=== PATIENT | female | born 1980 | race Caucasian/White ===

== ENCOUNTER 2019-12-18 10:44 | Day surgery (SDC) | payer BC ==
[~2019-12-18] VITALS: Ht 167.6 cm; Wt 153.2 kg
[~2019-12-18 10:44] MED LIST: LEVSOD75 PO; MONT10T PO
== END 2019-12-18 14:00 | disposition home or self-care (01) ==
LOC: ORSCSDS 10:44
PROVIDERS: Orthopaedic Surgery
PROC: 0QB Lower Bones, Excision (ICD-10-PCS; principal; 2019-12-18 11:45)
DX: M89.9 Disorder of bone, unspecified (principal); S80.01XA Contusion of right knee, initial encounter; S76.111A Strain of right quadriceps muscle, fascia and tendon, initial encounter; E03.9 Hypothyroidism, unspecified; Z79.899 Other long term (current) drug therapy
CPT/HCPCS: J0171; J1100; J1885; J2250; J2405; J2704; J3010; J7120

== ENCOUNTER → 2024-03-19 | Outpatient (CLI) | payer OTHER ==
[2024-03-19 13:20] LABS: Source, Urine Fem Cath
[2024-03-19 14:27] LABS: Appearance, Urine Clear (Clear); Bilirubin, Urine Neg (Neg); Blood, Urine Neg (Neg); Glucose Qualitative, Urine Neg (Neg); Ketones, Urine Neg (Neg); Leukocyte Esterase, Urine Neg (Neg); Nitrite, Urine Neg (Neg); Protein, Urine Neg (Neg); Specific Gravity, Urine 1.005 (1.003-1.022); Urobilinogen, Urine NORM (Normal)
[2024-03-19 14:54] LABS: Color, Urine No Color (P-Yellow)
== END ==
LOC: LAB 10:30 → LAB SHORT 10:30
PROVIDERS: Obstetrics & Gynecology
DX: N81.10 Cystocele, unspecified (principal)
CPT/HCPCS: 81003

== ENCOUNTER 2024-03-26 12:07 | Day surgery (SDC) | payer OTHER ==
[2024-03-26] VITALS (10 sets, daily range): BP systolic 99–123; BP diastolic 70–91
[~2024-03-26] VITALS: Ht 157.5 cm; Wt 63.8 kg
[~2024-03-26 12:07] MED LIST changes: +CeFAZolin Sodium 2,000 MG in NS 100 ML IV SCH; +Lactated Ringer's 1,000 ML IV SCH
[2024-03-26] MEDS ORDERED: CeFAZolin Sodium 2,000 MG VIAL ONE (12:15)
--- NOTE | 2024-03-26 12:52 | NUR ---
Ambulatory in Day Surgery. History, Chart, Medications and Allergies reviewed before start of procedure.Patient confirms NPO status and agrees with scheduled surgery. Lungs clear T/O to Auscultation. Patient States Post-Procedure ride home has been arranged.
[2024-03-26] MEDS ORDERED: Scopolamine Hydrobromide Patch TD SCH (13:15)
[2024-03-26] MEDS ORDERED: Bupivacaine 0.5% HCl 5 MG/ML 30MLVIAL ONE (13:18)
[2024-03-26] MEDS ORDERED: Dexamethasone Sod Phos 10 MG/ML 1ML VIAL ONE (13:29)
[2024-03-26] MEDS ORDERED: Ondansetron HCl 2 MG / ML 2ML Vial ONE (13:29)
[2024-03-26] MEDS ORDERED: Ketorolac Tromethamine 30mg Vial ONE (13:29)
[2024-03-26] MEDS ORDERED: OxyCODONE HCL 10 MG TABCR PO ONE (13:30)
[2024-03-26] MEDS ORDERED: propofoL 60 ML IV ONE (13:30)
[2024-03-26] MEDS ORDERED: Midazolam HCl 1MG / ML 2ML Vial ONE (13:35)
[2024-03-26] MEDS ORDERED: Lidocaine HCl 2% 20 ML MDV ONE (13:45)
[2024-03-26] MEDS ORDERED: Ketamine HCl 100 MG / ML 5ML Vial ONE (13:46)
[2024-03-26] MEDS ORDERED: Promethazine HCl 25 MG Supp PR ONE (13:55)
[2024-03-26] MEDS ORDERED: Lidocaine 1%-Epineph 1:200000 30 ML SDV ONE (14:00)
[2024-03-26] MEDS ORDERED: Acetaminophen 650 MG Supp ONE ×2 (14:41→14:42)
[2024-03-26] MEDS ORDERED: DiphenhydrAMINE HCL 25 MG Cap PO PRN (14:55)
[2024-03-26] MEDS ORDERED: Naloxone HCl 0.4MG / ML 1ML Vial IV PRN (15:00)
[2024-03-26] MEDS ORDERED: OxyCODONE HCL 5 MG TAB PO PRN (15:00)
[2024-03-26] MEDS ORDERED: Ondansetron 4 MG TAB PO PRN (15:00)
[2024-03-26] MEDS ORDERED: Simethicone 80 MG Chew PO PRN (15:00)
[2024-03-26] MEDS ORDERED: Ondansetron HCl 2 MG / ML 2ML Vial IV PRN (15:00)
[2024-03-26] MEDS ORDERED: Lactated Ringer's 1,000 ML IV SCH (15:00)
--- NOTE | 2024-03-26 15:10 | NUR ---
1500 PT HAS H/O INTERTRACTABLE VOMITING. HAS ON SCOPE PATCH. IV ZOFRAN GIVEN IN OR WELL NV PROMETHAZINE. NO MORE MED OPTIONS PER DR. JOHNSON
[2024-03-26] MEDS ORDERED: Ketorolac Tromethamine 30mg Vial IV PRN (15:19)
[2024-03-26] MEDS ORDERED: HYDROmorphone HCl/Pf 1MG SYR IV PRN (15:20)
[2024-03-26] MEDS ORDERED: FLU VACC TS2024-25(6MOS UP)/PF 45 MCG/0.5 ML SYRINGE IM PRN (15:20)
[2024-03-26] MEDS ORDERED: LORazepam 2 MG/ML 1ML Injection IV PRN (17:00)
[2024-03-26] MEDS ORDERED: OxyCODONE 5 mg/Acetamin 325 mg TABLET PO PRN (17:00)
--- NOTE | 2024-03-26 18:05 | NUR ---
SHIFT SUMMARY POD0 A&P REPAIR PANG INPLACE DRAINING TO GRAVITY, TO BE DCD WHEN AMBULATING. VSS, PATIENT IS NAUSEATED AND MEDICATED PER EMAR. ABLE TO TOLERATE SMALL SIPS OF WATER AT THIS TIME. CALL LIGHT IN REACH.
[2024-03-26] MEDS ORDERED: Promethazine HCl 25 MG Tab PO PRN (20:30)
[2024-03-26] MEDS ORDERED: Acetaminophen 325 MG TABLET PO PRN (21:00)
[2024-03-27 00:21] VITALS: BP 91/65
--- NOTE | 2024-03-27 04:35 | NUR ---
SHIFT SUMMARY FRANCY WAS ALERT AND FULLY ORIENTED ON ASSESMENT. PT NOW POD1 FOR REPAIRED PELVIC PROLAPSE. MODERATE VAGINAL BLEEDING NOTED EARLY IN SHIFT, WHICH LIGHTENED CONSIDERABLY T/O SHIFT. URINE NO LONGER BLOODY. PT VOIDING AND AMBULATING APPROPRIATELY. POST VOID BLADDER SCAN X2 REVEALING <100ML RETAINED. PT INDEPENDENT AT THIS TIME. NO ACUTE EVENTS. NO OTHER CHANGES NOTED.
[2024-03-27 04:56] VITALS: BP 79/53
[2024-03-27 05:26] VITALS: BP 103/65
[2024-03-27] MEDS ORDERED: Levothyroxine Sodium 0.075 MG Tab PO SCH (06:00)
--- NOTE | 2024-03-27 11:00 | NUR ---
DISCHARGE: PT IS A/O, VSS. PT IS AMBULATING IN ROOM AND VOIDING. PT REPORTS SCANT VAGINAL BLEED, PAIN IS MANAGED. LUNGS ARE CLEAR BILATERALLY. PT MEDICATED FOR NAUSEA AND REPORTS THAT DR. ANDREWS PRESCRIBED HOME DOSE OF PHERERGAN AND THAT NAUSEA IS NORMAL FOR HER AFTER SURGERY. DC PACKET PRINTED AND PT EDUCATED. IV DC'D WNL , TIP INTACT, DRESSES WITH TAPE AND GAUZE. PT LEFT UNIT ON FOOT WITH HER MOM AT ABOUT 1045.
== END 2024-03-27 10:08 | disposition home or self-care (01) ==
LOC: ORD 12:07 → ORSCMMR 12:07 → SURS 15:39 → ORSCMMR 03-27 10:08 → ORD 03-27 10:08 → SURS 03-27 10:08
PROVIDERS: Obstetrics & Gynecology
PROC: 0JQC0ZZ Repair Pelvic Region Subcutaneous Tissue and Fascia, Open Approach (ICD-10-PCS; principal; 2024-03-26 13:00)
DX: N81.10 Cystocele, unspecified (principal); N81.6 Rectocele; N81.5 Vaginal enterocele; E03.9 Hypothyroidism, unspecified; Z79.899 Other long term (current) drug therapy
CPT/HCPCS: 94762; A9270; J0690; J1100; J1885; J2250; J2405; J2704; J7120

== ENCOUNTER → 2024-06-18 | Outpatient (CLI) | payer OTHER ==
[~2024-06-18] MED LIST changes: -CeFAZolin Sodium 2,000 MG in NS 100 ML IV SCH; -Lactated Ringer's 1,000 ML IV SCH
[2024-06-18 13:06] LABS: Source, Urine Clean Catch
[2024-06-18 14:18] LABS: Appearance, Urine Clear (Clear); Bilirubin, Urine Neg (Neg); Blood, Urine 4+ (Neg); Glucose Qualitative, Urine Neg (Neg); Ketones, Urine Neg (Neg); Leukocyte Esterase, Urine 2+ (Neg); Nitrite, Urine Neg (Neg); Protein, Urine Neg (Neg); Specific Gravity, Urine 1.005 (1.003-1.022); Urobilinogen, Urine NORM (Normal)
[2024-06-18 14:36] LABS: Color, Urine Pale Yellow (P-Yellow)
[2024-06-18 14:37] LABS: Bacteria Many /hpf; Red Blood Cells, Urine 0-2 /hpf (0-2); Squamous Epithelial Cells Few /hpf (Few)
[2024-06-18 15:03] LABS: Bacterial Vaginosis PCR Negative (NEGATIVE); Candida Group, PCR NOT DETECTED (NOT DETECT); Candida glabrata-krusei, PCR NOT DETECTED (NOT DETECT)
== END ==
LOC: LAB SHORT 13:00 → LAB 13:00
PROVIDERS: Obstetrics & Gynecology
DX: R35.0 Frequency of micturition (principal)
CPT/HCPCS: 81001; 81515; 87086